=== PATIENT | female | born 1990 | race American Indian/Alaskan Native ===

== ENCOUNTER 2017-08-19 14:27 | Emergency (ER) | payer BC ==
--- NOTE | 2017-08-19 14:51 | PDOC ---
History of Present Illness - General Stated Complaint: SYNCOPE Time Seen by Provider: 08/19/17 14:51 - History of Present Illness Initial Comments: 08/19/17 15:44 Ms. Barron is a 27 yo female w/ no pmh who presents for evaluation after 1 episode of nausea and vomiting earlier today. She reports this happens every time she is having her period and that she presented as it happened at work and she was told to. She has no complaints at this time and feels well. Her vomit was food she had eater earlier only. The patient denies chest pain, shortness of breath, headache and dizziness. Denies fever, chills, diarrhea and constipation. Denies dysuria, frequency, urgency and hematuria. Allergies: NKDA Past History - Past Medical History Allergies/Adverse Reactions: Allergies Allergy/AdvReac Type Severity Reaction Status Date / Time No Known Allergies Allergy Verified 08/19/17 14:58 Home Medications: Ambulatory Orders NK [No Known Home Medication] 08/19/17 Review of Systems - Review of Systems Comments:: 08/19/17 15:46 GENERAL/CONSTITUTIONAL: No fever or chills. No weakness. HEAD, EYES, EARS, NOSE AND THROAT: No change in vision. No ear pain or discharge. No sore throat. CARDIOVASCULAR: No chest pain or shortness of breath RESPIRATORY: No cough, wheezing, or hemoptysis. GASTROINTESTINAL: +N/V as described. No diarrhea or constipation. GENITOURINARY: No dysuria, frequency, or change in urination. MUSCULOSKELETAL: No joint or muscle swelling or pain. No neck or back pain. SKIN: No rash NEUROLOGIC: No headache, vertigo, loss of consciousness, or change in strength/ sensation. ENDOCRINE: No increased thirst. No abnormal weight change HEMATOLOGIC/LYMPHATIC: No anemia, easy bleeding, or history of blood clots. ALLERGIC/IMMUNOLOGIC: No hives or skin allergy. *Physical Exam - Physical Exam Comments: 08/19/17 15:46 GENERAL: Awake, alert, and fully oriented, in no acute distress HEAD: No signs of trauma, normocephalic, atraumatic EYES: PERRLA, EOMI, sclera anicteric, conjunctiva clear ENT: Auricles normal inspection, hearing grossly normal, nares patent, oropharynx clear without exudates. Moist mucosa NECK: Normal ROM, supple, no lymphadenopathy, JVD, or masses LUNGS: No distress, speaks full sentences, clear to auscultation bilaterally HEART: Regular rate and rhythm, normal S1 and S2, no murmurs, rubs or gallops, peripheral pulses normal and equal bilaterally. ABDOMEN: Soft, nontender, normoactive bowel sounds. No guarding, no rebound. No masses EXTREMITIES: Normal inspection, Normal range of motion, no edema. No clubbing or cyanosis. NEUROLOGICAL: Cranial nerves II through XII grossly intact. Normal speech, normal gait, no focal sensorimotor deficits SKIN: Warm, Dry, normal turgor, no rashes or lesions noted. Medical Decision Making - Medical Decision Making 08/19/17 15:46 Ms. Barron is a 27 yo female w/ no pmh who presents post vomiting episode. Patient denies any syncopal episode, currently feels well and would like to go home. Denies any syncopal episode. Currently on day 1 of her period. Feels well ; no concern for acute process at this time. Patient not . Discharging to home. Laboratory Results - last 24 hr 08/19/17 15:32 Urine Color Red Urine Appearance Cloudy Urine pH 5.0 Ur Specific [place] 1.027 Urine Protein 3+ H Urine Glucose (UA) 1+ H Urine Ketones Trace H Urine Blood 3+ H Urine Nitrite Negative Urine Bilirubin Negative Urine Urobilinogen Negative Ur Leukocyte Esterase Trace Urine HCG, Qual Negative *DC/Admit/Observation/Transfer Diagnosis at time of Disposition: Nausea & vomiting Qualifiers: Vomiting type: unspecified Vomiting Intractability: unspecified Qualified Code( s): R11.2 - Nausea with vomiting, unspecified - Discharge Dispostion Disposition: HOME - Referrals - Patient Instructions Printed Discharge Instructions: DI for Syncope in Adults (Fainting) Additional Instructions: Please follow-up with primary care physician for further evaluation. Return to ER if any further vomiting, fever, chills, or other concerning symptoms. - Post Discharge Activity
--- NOTE | 2017-08-19 14:54 | PDOC ---
Attending Attestation - Resident Resident Name: Patrcik Mclean - HPI HPI: 08/19/17 15:51 Pt presents to the ED after vomiting and feeling lightheaded at work. Patient is currently having her period and states that she often feels lightheaded and vomits when she is having her period. She denies other new complaints. DEnies syncope to me and to the resident. - Physicial Exam PE: 08/19/17 15:52 Agree with resident exam. Patient is alert and oriented and in no acute distress. abdomen is soft, non tender and non distended. - Medical Decision Making 08/19/17 15:53 Pt presents to the ED complaining of nausea and vomiting that are typical of the symptoms she gets when she is having her period. Denies other complaints. Well appearing in the ED. U preg is negative and patient denies syncope. Will discharge home.
[2017-08-19 15:02] VITALS: BP 114/87; PULSE 74; TEMP 97.6; BMI 20.1
[2017-08-19 15:43] LABS: HCG,QUALITATIVE URINE NEGATIVE; URINE APPEARANCE CLOUDY; URINE BILIRUBIN NEGATIVE (<2.0 mg/dL); URINE COLOR RED; URINE GLUCOSE (UA) 1+ (NEGATIVE); URINE KETONE TRACE (NEGATIVE); URINE LEUK ESTERASE TRACE (NEGATIVE); URINE NITRITE NEGATIVE (NEGATIVE); URINE PROTEIN 3+ (NEGATIVE); URINE UROBILINOGEN NEGATIVE mg/dL (0.2-1.0)
[2017-08-19 15:48] LABS: URINE MUCUS MANY
[2017-08-19] MEDS ORDERED: ONDANSETRON 4 MG/2 ML VIAL ONE (16:02)
== END 2017-08-19 16:12 | disposition home or self-care (01) ==
LOC: JER 14:27
DX: R11.2 Nausea with vomiting, unspecified (principal)
CPT/HCPCS: 81003; 81015; 84703; 99284-25